=== PATIENT | male | born 2000 | race Caucasian/White ===

== ENCOUNTER 2020-09-10 19:14 | Emergency (ER) | payer OTHER ==
[~2020-09-10] VITALS: Ht 188 cm; Wt 72.6 kg
[2020-09-10] MEDS ORDERED: OMEPRAZOLE 20 M20 M1 PO (19:29)
[2020-09-10] MEDS ORDERED: ZYRTEC10 M5 PO (19:30)
[2020-09-10 21:07] VITALS: BP 119/73
== END 2020-09-10 21:07 | disposition home or self-care (01) ==
LOC: M.ERS 19:14
DX: S60.011A Contusion of right thumb without damage to nail, initial encounter (principal); K21.9 Gastro-esophageal reflux disease without esophagitis; F17.210 Nicotine dependence, cigarettes, uncomplicated; W22.8XXA Striking against or struck by other objects, initial encounter; Y93.89 Activity, other specified; Y92.89 Other specified places as the place of occurrence of the external cause; Y99.0 Civilian activity done for income or pay

== ENCOUNTER → 2021-06-25 | Emergency (ER) | payer OTHER ==
[~2021-06-25] VITALS: Ht 182.9 cm; Wt 77.1 kg
[~2021-06-25] MED LIST: OMEPRAZOLE 20 M20 M1 PO; VISTARIL 25 MG25 M1 PO; ZYRTEC10 M5 PO
--- NOTE | ~2021-06-25 | EMS ---
[place] [address] EMS Patient Care Report Name: DASHA ESPOSITO Room: [facility]#: [id number] Admission: Attend Phys: Discharge: Date of : [birth year] Report #: [id number] THIS REPORT FOR: //name// Report Transmitted: 06/25/2021 13:42 EMS Care Summary [employer] [facility] Incident [id number] @ 06/25/2021 12:08 Incident Location [address] [place] [address] Patient DASHA ESPOSITO Male, 21 Years 2000 Patient Address [address] [place] [address] Patient History None Reported, Patient Allergies No known allergies, Patient Medications None Reported, Chief Complaint Near syncope Disposition Transported No Lights/Street Dispatch Reason Unconscious/Fainting Transported To [facility] Narrative Dispatched to address noted for a syncopal episode. [facility] en route and [place] [address] EMS Patient Care Report Name: DASHA ESPOSITO Room: [facility].#: [id number] Admission: Attend Phys: Discharge: Date of : 98 Report #: [id number] Arrived and found the patient with his family in the living room. Patient was alert and oriented, sitting upright and did not appear to be in any distress. Patient was GCS of 15 and stated he felt short of breath. Patients family stated they witnessed the patient clutch his chest and fell to the floor. Patient s family stated that his eyes where twitching and he was breathing and alert through the brief event. Patient then got up an sat on the chair prior to arrival. Patient stated no medical history or medications as noted. Patient stated this has never happened before. Vitals where taken as noted and additional vitals where taken while standing and the patient had an increased heart rate while standing. Patient stated he felt weaker as well while standing. Patient agreed to transport to [facility]. Patient was able to walk to ambulance and was assisted to the stretcher and buckled in. Once in ambulance, vitals where taken at time noted. 4 lead ECG was obtained with blood glucose as noted and IV was obtained by crew. Patient stated no current complaints and transport was then started. While en route, vitals where taken at time noted with no major changes. Radio report was given with a 10 minute ETA. Arrived and took patient to triage room. Patient was assisted from stretcher and onto the chair. RN was given verbal report and signed for patient and patient signed for self. END REPORT EMT-P Patric Forbes Initial Vitals @12:11P: 100,R: 16,BP: 142/82,Pain: 0/10,GCS: 15,SpO2: 99,Revised Trauma: 12, @12:12P: 122,R: 16,BP: 138/92,GCS: 15,SpO2: 99,Revised Trauma: 12, @12:20P: 93,R: 16,BP: 131/89,Pain: 0/10,GCS: 15,Glucose: 116,SpO2: 99,Revised Trauma: 12,IA Suspected: false @12:38P: 94,R: 18,BP: 125/83,Pain: 0/10,GCS: 15,SpO2: 16,Revised Trauma: 12, Impression Syncope / Fainting Procedures @12:17Normal Saline (.9% NaCl) 10cc (18 ga) Site: Antecubital-LeftResponse: UnchangedSucceeded Timeline 12:06,Call Received 12:08,[place] [address] EMS Patient Care Report Name: DASHA ESPOSITO Room: [facility]..#: [id number] Admission: Attend Phys: Discharge: Date of : 98 Report #: [id number] 12:08,En Route 12:09,Initial Responder On Scene 12:09,On Scene 12:10,At Patient 12:11,BP: 142/82 M,PULSE: 100,RR: 16 R,SPO2: 99 Ox,ETCO2: ,BG: ,PAIN: 0,GCS: 15, 12:12,BP: 138/92 M,PULSE: 122,RR: 16 R,SPO2: 99 Ox,ETCO2: ,BG: ,PAIN: ,GCS: 15, 12:17,Normal Saline (.9% NaCl) 10cc 18 ga Site: Antecubital-Left,Response: UnchangedSucceeded, 12:20,BP: 131/89 M,PULSE: 93,RR: 16 R,SPO2: 99 Ox,ETCO2: ,B,PAIN: 0,GCS: 15, 12:21,Depart Scene 12:38,BP: 125/83 M,PULSE: 94,RR: 18 R,SPO2: 16 Ox,ETCO2: ,BG: ,PAIN: 0,GCS: 15, 12:41,At Destination 12:47,Transfer Patient 12:51,Call Closed 13:08,In District Disclaimer v1.1 Copyright 2020 [employer] This EMS Care Summary contains data elements from the applicable legal record (which may be displayed differently). It is designed to provide pertinent information for the following purposes: continuity of care, clinical quality, and state data reporting. The complete legal record is available to ED staff and administrators of the receiving hospital in ES's Patient Tracker. All data is provided "as is."
--- NOTE | ~2021-06-25 | EMS ---
[place] [address] EMS Patient Care Report Name: DASHA ESPOSITO Room: [facility]#: [id number] Admission: Attend Phys: Discharge: Date of : [birth year] Report #: [id number] THIS REPORT FOR: //name// Report Transmitted: 06/25/2021 12:36 EMS Care Summary [employer] [facility] Incident [id number] @ 06/25/2021 12:08 Incident Location [address] [place] [address] Patient DASHA ESPOSITO Male, 21 Years 2000 Patient Address [address] [place] [address] Patient History None Reported, Patient Allergies No known allergies, Patient Medications None Reported, Chief Complaint Near syncope Disposition Transported No Lights/[place] Dispatch Reason Unconscious/Fainting Transported To [facility] Narrative Dispatched to address noted for a syncopal episode. [place] [facility] en route and [place] [address] EMS Patient Care Report Name: DASHA ESPOSITO Room: [facility].#: [id number] Admission: Attend Phys: Discharge: Date of : [birth year] Report #: [id number] Arrived and found the patient with his family in the living room. Patient was alert and oriented, sitting upright and did not appear to be in any distress. Patient was GCS of 15 and stated he felt short of breath. Patients family stated they witnessed the patient clutch his chest and fell to the floor. Patient s family stated that his eyes where twitching and he was breathing and alert through the brief event. Patient then got up an sat on the chair prior to arrival. Patient stated no medical history or medications as noted. Patient stated this has never happened before. Vitals where taken as noted and additional vitals where taken while standing and the patient had an increased heart rate while standing. Patient stated he felt weaker as well while standing. Patient agreed to transport to [facility]. Patient was able to walk to ambulance and was assisted to the stretcher and buckled in. Once in ambulance, vitals where taken at time noted. 4 lead ECG was obtained with blood glucose as noted and IV was obtained by crew. Patient stated no current complaints and transport was then started. While en route, vitals where taken at time noted with no major changes. Radio report was given with a 10 minute ETA. Arrived and took patient to triage room. Patient was assisted from stretcher and onto the chair. RN was given verbal report and signed for patient and patient signed for self. END REPORT EMT-P Patric Forbes Initial Vitals @12:11P: 100,R: 16,BP: 142/82,Pain: 0/10,GCS: 15,SpO2: 99,Revised Trauma: 12, @12:12P: 122,R: 16,BP: 138/92,GCS: 15,SpO2: 99,Revised Trauma: 12, @12:20P: 93,R: 16,BP: 131/89,Pain: 0/10,GCS: 15,Glucose: 116,SpO2: 99,Revised Trauma: 12,AL Suspected: false @12:38P: 94,R: 18,BP: 125/83,Pain: 0/10,GCS: 15,SpO2: 16,Revised Trauma: 12, Impression Syncope / Fainting Procedures @12:17Normal Saline (.9% NaCl) 10cc (18 ga) Site: Antecubital-LeftResponse: UnchangedSucceeded Timeline 12:06,Call Received 12:08,[place] [address] EMS Patient Care Report Name: DASHA ESPOSITO Room: [facility]..#: [id number] Admission: Attend Phys: Discharge: Date of : [birth year] Report #: [id number] 12:08,En Route 12:09,Initial Responder On Scene 12:09,On Scene 12:10,At Patient 12:11,BP: 142/82 M,PULSE: 100,RR: 16 R,SPO2: 99 Ox,ETCO2: ,BG: ,PAIN: 0,GCS: 15, 12:12,BP: 138/92 M,PULSE: 122,RR: 16 R,SPO2: 99 Ox,ETCO2: ,BG: ,PAIN: ,GCS: 15, 12:17,Normal Saline (.9% NaCl) 10cc 18 ga Site: Antecubital-Left,Response: UnchangedSucceeded, 12:20,BP: 131/89 M,PULSE: 93,RR: 16 R,SPO2: 99 Ox,ETCO2: ,B,PAIN: 0,GCS: 15, 12:21,Depart Scene 12:38,BP: 125/83 M,PULSE: 94,RR: 18 R,SPO2: 16 Ox,ETCO2: ,BG: ,PAIN: 0,GCS: 15, 12:41,At Destination 12:47,Transfer Patient 12:51,Call Closed 13:08,In District Disclaimer v1.1 Copyright 2020 [employer] This EMS Care Summary contains data elements from the applicable legal record (which may be displayed differently). It is designed to provide pertinent information for the following purposes: continuity of care, clinical quality, and state data reporting. The complete legal record is available to ED staff and administrators of the receiving hospital in ES's Patient Tracker. All data is provided "as is."
[2021-06-25 13:32] LABS: ABSOLUTE BASOPHILS 0.1 thou/uL (0.0-0.2); ABSOLUTE LYMPHOCYTES 1.6 thou/uL (0.8-5.3); ABSOLUTE MONOCYTES 0.5 thou/uL (0.0-1.2); ABSOLUTE NEUTROPHILS 3.8 thou/uL (1.6-8.1); BASOPHILS 0.9 %; EOSINOPHILS 0.5 %; HEMATOCRIT 43.4 % (42.0-52.0); HEMOGLOBIN 15.2 gm/dL (14.0-18.0); LYMPHOCYTES 27.4 %; NUCLEATED RBCS 0 /100WBC; PLATELET COUNT* 153 thou/uL (150-400); POLYS 63.2 %; RBC 5.23 mil/uL (4.50-6.00); RDW-CV 12.7 % (10.5-14.5)
[2021-06-25 13:41] LABS: POTASSIUM 3.8 mmol/L (3.5-5.1)
[2021-06-25 13:46] LABS: ALBUMIN 4.6 g/dL (3.4-5.0); TOTAL BILIRUBIN 0.7 mg/dL (<0.1-1.0); TOTAL PROTEIN 7.6 g/dL (6.4-8.2)
[2021-06-25 14:32] VITALS: BP 114/75
--- NOTE | 2021-06-26 11:49 | EKG ---
[place] [address] ELECTROCARDIOGRAM REPORT Name: DASHA ESPOSITO Room: [facility]#: [id number] Admission: 06/25/21 Attend Phys: Discharge: Date of : [birth year] Date of Service: 06/25/21 1257 Report #: [id number] THIS REPORT FOR: //name// [facility] ED Test Date: 2021-06-25 Test Time: 12:57:25 Pat Name: DASHA ESPOSITO Department: Room: Gender: [employer]: : 2000 Requested By: Cheryl Wolff Order Number: [id number] MD: Kee Mckeon Measurements Intervals [place] Rate: 79 P: 15 CA: 174 QRS: 80 QRSD: 87 T: 24 QT: 364 QTc: 418 Interpretive Statements Sinus rhythm ST elev, probable normal early repol pattern No previous ECG available for comparison Electronically Signed On 06-26-2021 11:48:49 CDT by Kee Mckeon [email or web address] <ELECTRONICALLY SIGNED> By: Senia Mckeon MD, [facility] 06/26/21 1148 1257 1257 Senia Mckeon MD, FACC /EPI
== END ==
LOC: M.ERS 12:45
PROVIDERS: Physician Assistant
DX: R55 Syncope and collapse (principal); K21.9 Gastro-esophageal reflux disease without esophagitis; F17.210 Nicotine dependence, cigarettes, uncomplicated; Z90.49 Acquired absence of other specified parts of digestive tract